=== PATIENT | male | born 1950 | race Asian ===

== ENCOUNTER 2016-12-14 12:49 | Emergency (ER) | payer OTHER ==
[~2016-12-14] VITALS: Ht 167.6 cm; Wt 85.1 kg
[2016-12-14 14:38] LABS: BLOOD UREA NITROGEN 24 mg/dL (7-18)
[2016-12-14 15:34] VITALS: BP 134/78
== END 2016-12-14 18:47 | disposition home or self-care (01) ==
LOC: ED 15:37
DX: M10.9 Gout, unspecified (principal); M19.071 Primary osteoarthritis, right ankle and foot
CPT/HCPCS: 36415; 80048; 82040; 84550; 85025; 85651; 86141; 99285

== ENCOUNTER 2018-09-23 06:35 | Emergency (ER) | payer MEDICARE, OTHER ==
[~2018-09-23] VITALS: Ht 167.6 cm; Wt 75.9 kg
[2018-09-23 06:37] VITALS: BP 174/82
[2018-09-23] MEDS ORDERED: LIDOCAINE 1%-EPI 1:100K, 20ML SQ ONE (07:00)
[2018-09-23] MEDS ORDERED: DIPH,PERTUSS(ACELL),TET VAC/PF 0.5 ML IM-VACC ONE ×2 (07:00→07:09)
[2018-09-23] MEDS ORDERED: LIDOCAINE 1%-EPI 1:100K, 20ML ONE (07:08)
[2018-09-23] MEDS ORDERED: BACITRACIN ZINC OINT 500U/GM, 0.9 GM ONE (07:46)
--- NOTE | 2018-09-23 08:06 | NUR ---
Patient/Caregiver given discharge instructions and they have confirmed that they understand the instructions. Patient ambulatory with steady gait. PT LEFT WITH ALL PERSONAL BELONGINGS.
== END 2018-09-23 08:08 | disposition home or self-care (01) ==
LOC: ED 08:02
DX: S51.811A Laceration without foreign body of right forearm, initial encounter (principal); M19.90 Unspecified osteoarthritis, unspecified site; X58.XXXA Exposure to other specified factors, initial encounter; Y93.89 Activity, other specified; Y92.89 Other specified places as the place of occurrence of the external cause; Y99.8 Other external cause status
CPT/HCPCS: 12032; 90471; 90715

== ENCOUNTER 2019-07-13 20:22 | Emergency (ER) | payer MEDICARE ==
[~2019-07-13] VITALS: Ht 167.6 cm; Wt 74.6 kg
[2019-07-13 20:24] VITALS: BP 141/94
[2019-07-13] MEDS ORDERED: ACETAMINOPHEN 500 MG TABLET PO ONE (21:30)
[2019-07-13] MEDS ORDERED: ACETAMINOPHEN 500 MG TABLET ONE (21:38)
--- NOTE | 2019-07-13 22:01 | NUR ---
[facility] FOR SPLINT APPLICATION
== END 2019-07-13 22:23 | disposition home or self-care (01) ==
LOC: MERGE 20:22 → ED 21:30
DX: S52.571A Other intraarticular fracture of lower end of right radius, initial encounter for closed fracture (principal); S52.572A Other intraarticular fracture of lower end of left radius, initial encounter for closed fracture; M25.512 Pain in left shoulder; W01.0XXA Fall on same level from slipping, tripping and stumbling without subsequent striking against object, initial encounter; Y93.89 Activity, other specified; Y92.009 Unspecified place in unspecified non-institutional (private) residence as the place of occurrence of the external cause; Y99.8 Other external cause status
CPT/HCPCS: 29130; 99284